=== PATIENT | male | born 1995 | race Caucasian/White ===

== ENCOUNTER → 2017-05-09 | Day surgery (SDC) | payer BC, OTHER ==
[2017-05-06 15:10] VITALS: Ht 170.2 cm; Wt 106.8 kg
--- NOTE | 2017-05-08 10:08 | History and Physical: Surg Cnt ---
History & Physical Date May 08, 2017. Chief Complaint nasal trauma History of Present Illness The patient is a 21 year old male with complaints of nasal and septal fracture Additional History Hepatic Disease: No Endocrine Disorder: No Kidney Disease: No Hypertension: No Heart Disease: No Bleeding Tendencies: No Infectious Diseases: No Allergies Coded Allergies: No Known Allergies (Unverified , 05/06/17) Home Medications Scheduled Fexofenadine Hcl (Michelle Allergy), 1 TAB PO DAILY Scheduled PRN Albuterol Hfa (Ventolin Hfa), 2-4 PUFFS INH Q6H PRN for SOB/Wheezing Physical Examination Skin: warm/dry, no rash Eyes: normal inspection, EOMI, sclerae normal ENT: normal ENT inspection, pharynx normal Head: normocephalic, atraumatic Neck: supple, no adenopathy, trachea midline Respiratory/Chest: lungs clear, normal breath sounds, no respiratory distress Cardiovascular: regular rate, rhythm, no edema, no murmur Abdomen / GI: normal bowel sounds, non tender Back: normal inspection Extremities: normal inspection, normal range of motion Neurologic/Psych: no motor/sensory deficits, alert, normal reflexes, oriented x 3 Diagnosis nasal and septal fracture Plan of Treatment septoplasty, closed reduction of nose
[~2017-05-09] VITALS: Ht 170.2 cm; Wt 106.8 kg
[~2017-05-09] MED LIST: ATROPINE SULFATE 0.1 MG/ML 5ML SYR IV PRN; BACITRACIN OINT 15 GM TUBE ONE; CEFAZOLIN 2000MG IV PUSH 15 ML IV SCH; DEXAMETHASONE SOD INJ 4 MG/ML VIAL ONE; EpHEDrine SULFATE INJ 50 MG/ML AMP IV PRN; EpINEphrine INJ 1MG/ML AMP 1 MG/ML AMP ONE; FENTANYL CITRATE INJ 50 MCG/1 ML 2 ML VIAL IV PRN; FENTANYL CITRATE INJ 50 MCG/1 ML 2 ML VIAL ONE; FEXO1TAB49 PO; GELATIN SPONGE 12-7MM ONE; HYDROmorphone INJ 1 MG/ML SYR IV PRN; LACTATED RINGER'S 1000ML 1,000 ML IV SCH; LIDO 2%/EPINEPHRINE 1:100000 20 ML VIAL INFIL ONE; LIDOCAINE 4% MPF SOAK 5 ML = 1 DOSE TOP ONE; LIDOCAINE HCL 2% 2 ML VIAL (20MG/ML) ONE; MIDAZOLAM HCL 1 MG/ML 2ML VIAL ONE; ONDANSETRON INJ 2 MG/ML 2 ML VIAL IV PRN; ONDANSETRON INJ 2 MG/ML 2 ML VIAL ONE; OXYC-57 PO; OXYCODONE/ACETAMINOPHEN 5-325 TAB PO PRN; PROMETHAZINE HCL INJ 12.5 MG in SODIUM CHLORIDE 0.9% 50ML 50 ML IV PRN; PROPOFOL IV EMULSION 10 MG/ML 20 ML VIAL IV ONE; SODIUM CHLORIDE 0.9% 1000ML 1,000 ML IV SCH; VNTHFA/IN INH
--- NOTE | 2017-05-09 11:59 | History & Physical Bridge Note ---
H&P Re-Evaluation Bridge Note: I have examined the patient, reviewed the History & Physical and in the interval since the performance of the History & Physical I have noted the following changes of clinical significance: No changes noted
--- NOTE | 2017-05-09 13:05 | [facility] Post Operative Brief Note ---
Immediate Operative Summary Operative Date May 09, 2017. Pre-Operative Diagnosis Nasal and Septal Fracture Post-Operative Diagnosis Same Procedure(s) Performed Closed Reduction Nasal Fracture, Septoplasty Surgeon Dr. Gama Electric Motor Repair Supervisor Surgeon(s) None Estimated Blood Loss 15 ml Findings Consistent with Post-Op Diagnosis Specimens None Drains None Anesthesia Type General Complication(s) none Disposition Accompanied Pt To Recovery: yes Disposition: Recovery Room / PACU
--- NOTE | 2017-05-09 13:09 | [facility] Operative Report ---
Operative Report Operative Date May 09, 2017. Pre-Operative Diagnosis Nasal and Septal Fracture Post-Operative Diagnosis Same Procedure(s) Performed Closed Reduction Nasal Fracture, Septoplasty Surgeon Dr. Gama Principal Technologist Surgeon(s) None Estimated Blood Loss 15 ml Specimens None Drains None Anesthesia Type General Complication(s) none Disposition yes Recovery Room / PACU Indications 21-year-old man who injured his nose 3 weeks ago with persistent nasal obstruction and septal deviation to the right and left and deviation of the dorsum of the nose toward the left Description of Procedure The patient was brought to the operating room and placed in the supine position. General anesthesia was induced using LMA. He was prepped and draped in the usual sterile manner. The nose was decongested using cottonoids with a topical solution of 4% Xylocaine mixed with 1 cc of epinephrine. Injection of 2 % Xylocaine with 1-100,000 strength epinephrine was also used. The dorsum of the nose was deviated to the left this was reduced to the midline by pushing on the left nasal bone manually and lifting the right nasal bone with a padded [place] elevator. The left hemitransfixion incision was made and the mucoperichondrium was elevated off the left side the septum. The septal cartilage was inferiorly from the vomer maxillary crest and posteriorly from the perpendicular plate of the ethmoid. Superior and inferior tunnels were made and bilateral posterior tunnels were elevated. The deviated portion of the perpendicular plate of the ethmoid was removed in small pieces using the Wei-Metzger rongeurs, the caudal dissector, the Sheri forceps. There was a large spur projecting to the right inferiorly from the volmer maxillary crest which had to be removed using the 4 mm osteotome and the Wei-Metzger rongeurs. A strip of cartilage was removed from inferiorly to allow the septum to return to the midline and the septum was closed using a continuous mattress suture of 4 oh plain gut. Anterior nasal packing of [place]elf[place] was placed. The patient tired procedure well and was taken to the recovery area in satisfactory condition I attest to the content of the Intraoperative Record and any orders documented therein. Any exceptions are noted below.
--- NOTE | 2017-05-09 13:10 | Discharge Instructions-SurgCtr ---
Discharge Instructions Date of Service May 09, 2017. Visit Reason for Visit: Nasal & Septal Fracture Discharge Discharge Diagnosis / Problem: same Discharge Goals Goal(s): Improve function Medications Stopped Medications Name(s): Pt. was told not to take Allerga this a.m.. Activity Recommendations Activity Limitations: resume your previous activity Anesthesia . Post Anesthesia Instructions: If you have had General Anesthesia or IV Sedation: * Do not drive today. * Resume driving when surgeon permits. * Do not make important decisions or sign legal documents today. * Call surgeon for: 1. Temperature elevations greater than 101 degrees F. 2. Uncontrollable pain. 3. Excessive bleeding. 4. Persistent nausea and vomiting. 5. Medication intolerance (nausea, vomiting or rash). * For nausea and vomiting use only clear liquids such as: tea, soda, bouillon until nausea subsides, then gradually increase diet as tolerated. * If you have any concerns or questions, call your surgeon's office. If physician is unavailable and it is an emergency, call 911 or go to the nearest emergency room. . Instructions / Follow-Up Instructions / Follow-Up ACTIVITY RECOMMENDATIONS: * Being up and around is good, but no strenuous activity, heavy lifting or physical exertion for one week. * Keep your head elevated 30 degrees when lying down or sleeping. * Do not blow your nose for 48 hours, sniff back instead. * Avoid hot showers. OVER THE COUNTER MEDICATIONS: * You may use Tylenol * Avoid aspirin or aspirin containing products, e.g. as they may increase bleeding. SPECIAL CARE INSTRUCTIONS: * Expect to have bloody drainage from your nose and/or down your throat for one to three days. Change drip pad as needed. * Begin irrigating your nose with saline solution today, at least six to ten times per day and sniff back to help remove old clots or crust. * You may experience nasal and facial congestion, pain and pressure, this is normal. * Please call with any significant and/or progressive pain, redness, swelling around the eyes, visual changes, fever of 101.5 degrees F, active bleeding or any problems or concerns. * If active bleeding occurs, spray the nose three times at one minute intervals with Afrin spray and call or cell phone: . If unable to reach the doctor, go to the nearest Emergency Department. Special Diet: * Avoid extremely hot fluids. FOLLOW UP VISIT: Follow-up Visit with Dr. Gama If not already scheduled, please call to schedule. Diet Recommendations Home Diet: no limitations Procedures Procedures Performed: Closed Reduction Nasal Fracture, Septoplasty Pending Studies Studies pending at discharge: no Medical Emergencies . Who to Call and When: Medical Emergencies: If at any time you feel your situation is an emergency, please call 911 immediately. . Non-Emergent Contact Non-Emergency issues call your: Primary Care Provider . . "Provider Documentation" section prepared by Juliet Gama. . [place] Drug Monitoring Program Search Results: no issues identified
[2017-05-09 13:50] VITALS: BP 137/89; PULSE 93; TEMP 36.7; O2SAT 94
--- NOTE | 2017-05-09 14:17 | Anesthesia Progress Nt - [facility] ---
Anesthesia Post Op Note Date & Time May 09, 2017 at 14:17 Vital Signs Pain Intensity: 0 Vital Signs Past 12 Hours Date Time Temp Pulse Resp B/P (MAP) Pulse Ox O2 Delivery O2 Flow Rate FiO2 05/09/17 13:50 36.7 93 24 137/89 (105) 94 Room Air 05/09/17 13:41 168/107 05/09/17 13:40 89 8 05/09/17 13:40 88 8 97 05/09/17 13:39 37.2 96 16 168/107 96 Room Air 05/09/17 13:36 165/106 05/09/17 13:35 98 14 96 05/09/17 13:35 97 14 05/09/17 13:32 173/109 05/09/17 13:31 173/104 05/09/17 13:30 93 12 05/09/17 13:30 94 12 97 05/09/17 13:26 159/113 05/09/17 13:25 93 9 100 05/09/17 13:25 92 9 05/09/17 13:21 154/105 05/09/17 13:20 81 14 100 05/09/17 13:20 82 14 05/09/17 13:16 168/109 05/09/17 13:15 89 17 05/09/17 13:15 89 17 100 05/09/17 13:11 150/101 05/09/17 13:10 94 21 05/09/17 13:10 95 21 100 05/09/17 13:06 142/97 05/09/17 13:05 37.0 96 16 142/97 100 Humidified Oxygen 6 Mask 05/09/17 10:41 37.2 97 16 155/97 (116) 95 Room Air Notes Mental Status: alert / awake / arousable, participated in evaluation Pt Amnestic to Procedure: Yes Nausea / Vomiting: adequately controlled Pain: adequately controlled Airway Patency, RR, SpO2: stable & adequate BP & HR: stable & adequate Hydration State: stable & adequate Anesthetic Complications: no major complications apparent
== END | disposition home or self-care (01) ==
LOC: X.SURG 10:07
PROVIDERS: ATTEND Otolaryngology
DX: S02.2XXA Fracture of nasal bones, initial encounter for closed fracture (principal); X58.XXXA Exposure to other specified factors, initial encounter; J45.909 Unspecified asthma, uncomplicated